=== PATIENT | female | born 1945 | race Caucasian/White ===

== ENCOUNTER → 2017-10-28 | Outpatient (CLI) | payer MEDICARE, OTHER ==
[~2017-10-28] MED LIST: AMITRIPTYLINE H50 M3 PO; ASPIRIN EC81 M1 PO; AZITHROMYCIN 2250 MG PO; B COMPLEX-VITA1 EACH PO; B Complex-Vitamin PO; BUSPAR15 MG PO; BUTALB-APAP-CA1 EACH PO; CALCIUM 600 +1 EAC1 PO; CLEOCIN HCL150 MG PO; FENOFIBRATE160 MG PO; FERREX 150 PLU1 EAC1 PO; FIORICET 50-321 EACH PO; FISH OIL 1,0001 EAC5 PO; FLEXERIL PO; HYDROCODON-ACE1 EAC5 PO; HYDROCODON-ACE1 EAC7 PO; HYDROCODONE-AP1 EAC6 PO; IBUPROFEN 800800 M1 PO; KEFLEX500 MG PO; KLOR-CON 1010 MEQ PO; LASIX 20 MG TAB20 MG PO; NEURONTIN 300300 M1 PO; NORCO 5-325 TA1 EACH PO; OMEGA-3 KRILL1 EACH PO; OMEPRAZOLE40 MG PO; OXYCODON-ACETA1 EAC1 PO; PROCTOFOAM-HC 110 GM RECTAL; PROTONIX40 M2 PO; REQUIP3 MG PO; SIMVASTATIN40 MG PO; SLOW FE 160MG160 MG PO
== END ==
LOC: M.NUC 10-27 12:00
DX: R63.0 Anorexia (principal); R68.81 Early satiety; R63.4 Abnormal weight loss; R11.0 Nausea; R25.2 Cramp and spasm; J44.1 Chronic obstructive pulmonary disease with (acute) exacerbation

== ENCOUNTER 2019-09-11 20:58 | Inpatient (IN) | payer MEDICARE, OTHER ==
[~2019-09-11] VITALS: Ht 157.5 cm; Wt 39.9 kg
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
[2019-09-11 21:06] VITALS: BP 154/73
[2019-09-11 21:34] LABS: ABSOLUTE BASOPHILS 0.1 thou/uL (0.0-0.2); ABSOLUTE EOSINOPHILS 0.4 thou/uL (0.0-0.7); ABSOLUTE LYMPHOCYTES 1.9 thou/uL (0.8-5.3); ABSOLUTE MONOCYTES 0.5 thou/uL (0.0-1.2); ABSOLUTE NEUTROPHILS 5.9 thou/uL (1.6-8.1); BASOPHILS 1.2 %; EOSINOPHILS 4.9 %; HEMATOCRIT 38.2 % (37.0-47.0); HEMOGLOBIN 12.1 gm/dL (12.0-15.0); MCH 28.8 pg (26.0-34.0); MCHC 31.8 g/dL (28.0-37.0); MCV 90.4 fL (80.0-100.0); MONOCYTES 5.9 %; MPV 7.2 fl. (7.2-11.1); NUCLEATED RBCS 0 /100WBC; PLATELET COUNT* 397 thou/uL (150-400); RBC 4.22 mil/uL (4.20-5.00); WBC 8.9 thou/uL (4.0-11.0)
[2019-09-11 21:45] LABS: CALCIUM 8.8 mg/dL (8.5-10.1); CREATININE 0.9 mg/dL (0.6-1.3); POTASSIUM 4.1 mmol/L (3.5-5.1)
[2019-09-11 21:50] LABS: ALBUMIN 3.7 g/dL (3.4-5.0); TOTAL BILIRUBIN 0.1 mg/dL (<0.1-1.0); TOTAL PROTEIN 7.2 g/dL (6.4-8.2)
[2019-09-12 00:05] VITALS: BP 148/80
[2019-09-12 00:15] VITALS: BP 155/67
--- NOTE | 2019-09-12 01:57 | NUR ---
PT ADMITTED TO ROOM 314 AT 0015. PT REPORTED SEVERE ABDOMINAL PAIN AT 0100. PAGED AND RECIEVED ORDER FOR FENTANYL Q 1 HR PRN. PT GIVEN 50 MCG FENTANYL WITH 4 MG ZOFRAN. PT GIVEN FLEETS ENEMA PER ORDERS. PT ASSISTED TO BEDSIDE COMMODE WITH STANDBY ASSISTANCE. CALL LIGHT IN REACH. PT USING APPROPRIATELY.
--- NOTE | 2019-09-12 02:37 | NUR ---
PT UP TO BEDSIDE COMMODE. PT HAD THREE MODERATE SIZED FORMED LIGHT BROWN STOOL.
[2019-09-12 08:36] VITALS: BP 107/52
--- NOTE | 2019-09-12 15:23 | NUR ---
pt has had large light brown bm appearing gritty since given dulcalox supp,miralax and drank 1/4 of mag citrate.prn for pain and nausea given with good effect.iv fluids infusing and pt eating jello now.pt remains alert and orientated.pt also voiding large amounts but unable to obtain urine specimen due to liquid bm's in urine.pt transferrs with min assist.
[2019-09-12 16:00] VITALS: BP 151/63
--- NOTE | 2019-09-12 17:05 | NUR ---
SW met with pt to complete initial assessment, introduce self, and SW role. Pt alert, oriented. Pt lives at home with . Pt does not anticipate any dc needs at this time. SW to remain available to assist with safe dc planning.
[2019-09-12 20:00] VITALS: BP 158/52
[2019-09-12] MEDS ORDERED: MIRTAZAPINE7.5 MG PO (20:12)
[2019-09-12] MEDS ORDERED: DRIZALMA SPRINK60 MG PO (20:14)
[2019-09-13 08:07] VITALS: BP 126/56
[2019-09-13 15:54] VITALS: BP 140/62
--- NOTE | 2019-09-13 16:50 | EKG ---
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
--- NOTE | 2019-09-13 19:03 | NUR ---
PATIENT AMBULATING WITH STAND BY ASSISTANCE IN ROOM THROUGHOUT SHIFT. ALL SAFETY MEASURES MAINTAINED. PATIENT DENIES FURTHER NEEDS AT THIS TIME.
[2019-09-13 20:30] VITALS: BP 138/66
[2019-09-14 04:54] LABS: HEMATOCRIT 28.2 % (37.0-47.0); MCHC 32.1 g/dL (28.0-37.0); MCV 90.2 fL (80.0-100.0); MPV 7.2 fl. (7.2-11.1); RBC 3.13 mil/uL (4.20-5.00); RDW-CV 15.7 % (10.5-14.5); WBC 7.1 thou/uL (4.0-11.0)
[2019-09-14 04:55] LABS: ALBUMIN 2.3 g/dL (3.4-5.0); CALCIUM 7.8 mg/dL (8.5-10.1); CREATININE 0.6 mg/dL (0.6-1.3); MAGNESIUM 1.9 mg/dL (1.8-2.4); POTASSIUM 4.4 mmol/L (3.5-5.1); TOTAL BILIRUBIN 0.1 mg/dL (<0.1-1.0); TOTAL PROTEIN 4.8 g/dL (6.4-8.2)
[2019-09-14 04:58] LABS: HEMOGLOBIN 9.1 gm/dL (12.0-15.0)
--- NOTE | 2019-09-14 06:21 | NUR ---
PT HAD LARGE FORMED BROWN STOOL AT 0615.
[2019-09-14 07:45] VITALS: BP 132/56
[2019-09-14 11:41] VITALS: BP 138/66
[2019-09-14 14:50] VITALS: BP 144/61
[2019-09-14 16:00] VITALS: BP 125/83
--- NOTE | 2019-09-14 16:27 | NUR ---
PATIENT RETURNED FROM FLEX. SIG. ALERT AND ORIENTED X4. WAS GIVEN PAIN MEDICATION FOR HEADACHE AND PATIENT STATED IT IS HELPING. ASSESSMENT CHARTED. WILL CONTINUE TO MONITOR. CALL LIGHT WITHIN REACH.
--- NOTE | 2019-09-14 16:29 | NUR ---
ALERT AND ORIENTED X4. SOAP SUDS ENEMA GIVEN WITH SMALL AMOUNT OF LIQUID STOOL. HAD FLEX SIG DONE TODAY WITH NEW MEDICATIONS ORDERED. UP WITH 1 ASSIST DUE TO UNSTEADY GAIT. NEW IV STARTED WITHOUT DIFFICULTY. CALL LIGHT WITHIN REACH. BED ALARM ON.
[2019-09-14 20:00] VITALS: BP 135/63
[2019-09-15] MEDS ORDERED: OMEPRAZOLE40 MG PO (00:56)
[2019-09-15] MEDS ORDERED: NEURONTIN 400M400 M2 PO (01:04)
[2019-09-15] MEDS ORDERED: NORVASC 2.5 MG2.5 M1 PO (01:05)
[2019-09-15] MEDS ORDERED: TOPAMAX100 MG PO (01:06)
[2019-09-15] MEDS ORDERED: ROPINIROLE HCL4 MG PO (01:09)
[2019-09-15] MEDS ORDERED: ARIMIDEX PO (05:53)
--- NOTE | 2019-09-15 07:48 | NUR ---
Alert and oriented x 4. She is up with asssit to bedside commode. Vitals are stable. She had a migraine and fioricet was given. L arm has still been puffy from previous IV infiltrating. Home med list up dated per patient. New nitro cream applied to rectum. She has slept well.
[2019-09-15 08:32] VITALS: BP 130/58
[2019-09-15 09:06] LABS: URINE BILIRUBIN NEGATIVE (Negative); URINE BLOOD NEGATIVE (Negative); URINE CLARITY CLEAR; URINE COLOR YELLOW; URINE GLUCOSE-RANDOM NEGATIVE (Negative); URINE KETONES NEGATIVE (Negative); URINE LEUKOCYTES-REFLEX NEGATIVE (Negative); URINE NITRITE-REFLEX NEGATIVE (Negative); URINE PROTEIN NEGATIVE (Negative); URINE SPECIFIC GRAVITY <= 1.005 (1.005-1.030); URINE UROBILINOGEN 0.2 E.U./dl (0.2-1.0)
[2019-09-15] MEDS ORDERED: ANUSOL-HC25 MG RECTAL (12:01)
[2019-09-15] MEDS ORDERED: AZITHROMYCIN 2250 MG PO (12:05)
[2019-09-15] MEDS ORDERED: MIRTAZAPINE7.5 MG PO (12:10)
[2019-09-15] MEDS ORDERED: [UNRECOGNIZED DRUG - OTHER] TOP (13:07)
[2019-09-15] MEDS ORDERED: DESITIN TOP (13:07)
[2019-09-15 13:22] VITALS: BP 130/58
--- NOTE | 2019-09-15 14:53 | NUR ---
ASSUMMED CARE OF PT AT 0730, PT ALERT AND ORIENTED, HAS SOME PAIN IN RECTAL AREA WHEN SITTING, DENIES NEED FOR PAIN MEDICATION OTHER THAN SCHEDULED TOPICAL MEDICATION, PT TAKING FOOD AND FLUIDS WELL, UP TO COMMODE, VOIDS IN LARGE AMOUNTS, SMALL AMOUNT OF BM THIS AM, IV INFILTRATED RIGHT FA, DC'D WITH NEEDLE INTACT, PT COMPLAINED OF MIGRAINE, MEDICATED X 2 WITH FIORICET, OBTAINED ADEQUATE RELIEF AND STATED SHE IS ABLE TO REST, DID C/O SLIGHT NAUSEA MEDICATED X1, NO EMESIS, ORDERS OBTAINED FOR DISCHARGE, EDUCATED ON DISCHARGE MEDICATIONS, SCRIPTS, FOLLOW UP APPTS, WHEN TO CALL PHYSICIAN, DIET ACTIVITY, PT COMMUNICATES UNDERSTANDING OF ORDERS, SCRIPTS GIVEN TO PT, AND PT INSTRUCTED SHE MAY NEED TO CALL HER PHARMACY AND ASK IF THEY ARE ABLE TO MAKE THE COMPOUND TOPICAL OINTMENT FOR HER, SHE STATED SHE WOULD FIND A PHARMACY THAT WOULD BE ABLE TO FILL IT, ESCORTED TO MAIN ENTRANCE PER W/C WITH BELONGINGS.
--- NOTE | 2019-09-19 12:06 | PATH ---
[address] [address] PATHOLOGY RPT PROCEDURE Name: ALISA LUGO Room: [address] IN M.R.#: [id number] Admission: 09/11/19 Date of : 47 Discharge: 09/15/19 Report #: [id number] Path Case #: [id number] [facility] Accession Number: [id number] . 01 Material submitted: . rectum - BIOPSIES OF RECTUM FOR PROCTITIS . 01 Clinical history: . None provided . 02 Diagnosis: Colon, rectum, biopsy: - Findings suggestive of ischemic colitis. . (Please see comment) (JARRELL:ramiro; 09/19/2019) [facility] 09/19/2019 0811 Local . 02 Comment: This case has also been reviewed by Dr. Parker Rodriguez MD, who agrees with the diagnosis. (JARRELL:ramiro; 09/19/2019) . 02 Electronically signed: . Abraham Marrero MD, Pathologist NPI- [id number] . 01 Gross description: . Received in formalin labeled "Alisa Lugo, biopsies of rectum for proctitis," are 2 segments of raygoza soft tissue measuring 0.7 x 0.2 x 0.2 cm in aggregate dimensions and ranging from 0.3 to 0.4 cm in maximum dimension. The specimen is submitted entirely in cassette A1. (TSD; 09/14/2019) TOB/TOB 09/14/2019 [facility] Local . 02 Pathologist provided ICD-10: K59.00 . 02 CPT . 504819 Specimen Comment: A courtesy copy of this report has been sent to [phone] Specimen Comment: [phone], Specimen Comment: Report sent to , DR WEST / DR COY Performed at: [address], [place] [id number] MD Orlin Gunderson MD Phone: [phone] [place] [address] PATHOLOGY RPT PROCEDURE Name: ALISA LUGO Room: [address] IN M.R.#: [id number] Admission: 09/11/19 Date of : 47 Discharge: 09/15/19 Report #: [id number] Path Case #: [id number] Performed at: [address] [id number] MD Vineet Moore MD Phone: [phone]
== END 2019-09-15 14:50 | disposition home or self-care (01) | DRG 388 ==
LOC: M.ERS 20:58 → M.3W 23:18 → M.TBA-ER 23:18 → M.3W 09-12 00:05
PROVIDERS: Emergency Medicine; Internal Medicine; ADMIT Family Medicine
PROC: 0DBP8ZX Excision of Rectum, Via Natural or Artificial Opening Endoscopic, Diagnostic (ICD-10-PCS; principal; 2019-09-14)
DX: K56.0 Paralytic ileus (principal); E43 Unspecified severe protein-calorie malnutrition; Z68.1 Body mass index [BMI] 19.9 or less, adult; G43.909 Migraine, unspecified, not intractable, without status migrainosus; E78.5 Hyperlipidemia, unspecified; K57.30 Diverticulosis of large intestine without perforation or abscess without bleeding; K59.00 Constipation, unspecified; K21.9 Gastro-esophageal reflux disease without esophagitis; K62.3 Rectal prolapse; K60.2 Anal fissure, unspecified; K64.8 Other hemorrhoids; R15.9 Full incontinence of feces; Z86.73 Personal history of transient ischemic attack (TIA), and cerebral infarction without residual deficits; Z88.6 Allergy status to analgesic agent; Z88.2 Allergy status to sulfonamides; Z88.8 Allergy status to other drugs, medicaments and biological substances; Z87.891 Personal history of nicotine dependence

== ENCOUNTER → 2019-11-23 | Outpatient (CLI) | payer MEDICARE, OTHER ==
[~2019-11-23] MED LIST changes: +ANUSOL-HC25 MG RECTAL; +ARIMIDEX PO; +DESITIN TOP; +DRIZALMA SPRINK60 MG PO; +MIRTAZAPINE7.5 MG PO; +NEURONTIN 400M400 M2 PO; +NORVASC 2.5 MG2.5 M1 PO; +ROPINIROLE HCL4 MG PO; +TOPAMAX100 MG PO; +[UNRECOGNIZED DRUG - OTHER] TOP
== END ==
LOC: M.LAB 04:06
DX: E87.6 Hypokalemia (principal)

== ENCOUNTER 2020-01-25 15:41 | Emergency (ER) | payer MEDICARE, OTHER ==
[~2020-01-25] VITALS: Ht 157.5 cm; Wt 38.1 kg
[2020-01-25] MEDS ORDERED: LINZESS290 MCG PO (15:57)
[2020-01-25 16:29] LABS: BE -5.3 mmol/L (-2 to +3); PCO2 33.7 mmHg (35.0-45.0); PO2 104.1 mmHg (75.0-100.0); pH 7.375 (7.340-7.450)
[2020-01-25 16:53] LABS: ABSOLUTE BASOPHILS 0.1 thou/uL (0.0-0.2); ABSOLUTE EOSINOPHILS 0.3 thou/uL (0.0-0.7); ABSOLUTE LYMPHOCYTES 1.4 thou/uL (0.8-5.3); ABSOLUTE MONOCYTES 0.4 thou/uL (0.0-1.2); ABSOLUTE NEUTROPHILS 3.5 thou/uL (1.6-8.1); BASOPHILS 1.4 %; EOSINOPHILS 4.8 %; HEMATOCRIT 27.3 % (37.0-47.0); HEMOGLOBIN 8.7 gm/dL (12.0-15.0); LYMPHOCYTES 25.6 %; MCH 24.2 pg (26.0-34.0); MCHC 31.9 g/dL (28.0-37.0); MCV 75.8 fL (80.0-100.0); MONOCYTES 6.5 %; MPV 7.8 fl. (7.2-11.1); NUCLEATED RBCS 0 /100WBC; PLATELET COUNT* 295 thou/uL (150-400); POLYS 61.7 %; RBC 3.61 mil/uL (4.20-5.00); RDW-CV 17.7 % (10.5-14.5); WBC 5.6 thou/uL (4.0-11.0)
[2020-01-25 17:02] LABS: PROTIME 10.4 Seconds (9.20-11.50)
[2020-01-25 17:04] LABS: URINE BILIRUBIN NEGATIVE (Negative); URINE BLOOD NEGATIVE (Negative); URINE CLARITY CLEAR; URINE COLOR YELLOW; URINE GLUCOSE-RANDOM NEGATIVE (Negative); URINE KETONES NEGATIVE (Negative); URINE LEUKOCYTES-REFLEX 1+ (Negative); URINE NITRITE-REFLEX NEGATIVE (Negative); URINE PROTEIN NEGATIVE (Negative); URINE SPECIFIC GRAVITY 1.015 (1.005-1.030); URINE UROBILINOGEN 0.2 E.U./dl (0.2-1.0)
[2020-01-25 17:18] LABS: HYALINE CASTS 4-10 Moderate /LPF (None Seen); MUCUS None Seen strn/LPF (None Seen); SQUAMOUS >10 Many /LPF (0-3)
[2020-01-25 17:19] LABS: BACTERIA-REFLEX >30 Many /HPF (None Seen); CRYSTALS None Seen /LPF (None Seen); URINE RBC None Seen /HPF (0-2); URINE WBC-REFLEX >25 Many /HPF (0-5); WBC CLUMPS Few (None Seen)
[2020-01-25 17:24] LABS: CALCIUM 8.6 mg/dL (8.5-10.1); CREATININE 0.9 mg/dL (0.6-1.3); POTASSIUM 3.7 mmol/L (3.5-5.1)
[2020-01-25 17:34] LABS: ALBUMIN 3.9 g/dL (3.4-5.0); MAGNESIUM 2.2 mg/dL (1.8-2.4); TOTAL BILIRUBIN 0.2 mg/dL (<0.1-1.0)
[2020-01-25 18:50] VITALS: BP 116/75
--- NOTE | 2020-01-26 09:52 | EKG ---
[place] [address] ELECTROCARDIOGRAM REPORT Name: PRISCA SALCIDO Room: [facility]#: [id number] Admission: 01/25/20 Attend Phys: Discharge: 01/25/20 Date of : 47 Date of Service: 01/25/20 1601 Report #: [id number] THIS REPORT FOR: //name// 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 : 1945 Requested By: Laurie Matthews Order Number: [id number] MD: Peewee Stallings Measurements Intervals [place] Rate: 75 P: 56 OR: 162 QRS: 28 QRSD: 89 T: 63 QT: 399 QTc: 446 Interpretive Statements Sinus rhythm nonspecific st changes Probable left atrial enlargement Compared to ECG 09/13/2019 15:40:36 st changes noted Electronically Signed On 01-26-2020 9:51:13 CDT by Peewee Stallings [email or web address] <ELECTRONICALLY SIGNED> By: Peewee Stallings MD, [facility] 01/26/20 0951 1601 1601 Peewee Stallings MD, [facility] /EPI
== END 2020-01-25 18:51 | disposition home or self-care (01) ==
LOC: M.ERS 15:41
PROVIDERS: Personal Emergency Response Attendant
DX: D64.9 Anemia, unspecified (principal); R06.02 Shortness of breath; G43.909 Migraine, unspecified, not intractable, without status migrainosus; Z88.2 Allergy status to sulfonamides; Z88.5 Allergy status to narcotic agent; Z88.8 Allergy status to other drugs, medicaments and biological substances; Z87.891 Personal history of nicotine dependence

== ENCOUNTER 2021-02-13 14:58 | Emergency (ER) | payer MEDICARE, OTHER ==
[~2021-02-13] VITALS: Ht 157.5 cm; Wt 43.1 kg
[~2021-02-13 14:58] MED LIST changes: +LINZESS290 MCG PO
[2021-02-13 16:44] LABS: ABSOLUTE BASOPHILS 0.1 thou/uL (0.0-0.2); ABSOLUTE EOSINOPHILS 0.2 thou/uL (0.0-0.7); ABSOLUTE MONOCYTES 0.2 thou/uL (0.0-1.2); WBC 5.5 thou/uL (4.0-11.0)
[2021-02-13 16:46] LABS: ABSOLUTE NEUTROPHILS 3.5 thou/uL (1.6-8.1); HEMOGLOBIN 12.3 gm/dL (12.0-15.0); POLYS 64.5 %
[2021-02-13 16:49] LABS: ABSOLUTE LYMPHOCYTES 1.5 thou/uL (0.8-5.3); EOSINOPHILS 3.9 %; HEMATOCRIT 37.1 % (37.0-47.0); LYMPHOCYTES 26.4 %; MCH 32.5 pg (26.0-34.0); MCV 98.4 fL (80.0-100.0); MONOCYTES 4.2 %; MPV 8.2 fl. (7.2-11.1); NUCLEATED RBCS 0 /100WBC; PLATELET COUNT* 216 thou/uL (150-400); RBC 3.77 mil/uL (4.20-5.00); RDW-CV 13.4 % (10.5-14.5)
[2021-02-13 16:50] LABS: CALCIUM 8.4 mg/dL (8.5-10.1); CREATININE 0.8 mg/dL (0.6-1.3)
[2021-02-13 16:55] LABS: ALBUMIN 3.7 g/dL (3.4-5.0); TOTAL BILIRUBIN 0.2 mg/dL (<0.1-1.0); TOTAL PROTEIN 7.3 g/dL (6.4-8.2)
[2021-02-13 17:13] LABS: URINE BILIRUBIN NEGATIVE (Negative); URINE BLOOD NEGATIVE (Negative); URINE CLARITY CLEAR; URINE COLOR YELLOW; URINE GLUCOSE-RANDOM NEGATIVE (Negative); URINE KETONES NEGATIVE (Negative); URINE LEUKOCYTES-REFLEX NEGATIVE (Negative); URINE NITRITE-REFLEX NEGATIVE (Negative); URINE PROTEIN NEGATIVE (Negative); URINE SPECIFIC GRAVITY 1.015 (1.005-1.030); URINE UROBILINOGEN 0.2 E.U./dl (0.2-1.0)
[2021-02-13] MEDS ORDERED: TRANSDERM-SCOP1 EACH TRANSDERM ×2 (18:01→18:04)
[2021-02-13] MEDS ORDERED: CEPHALEXIN500 MG PO ×2 (18:01→18:04)
[2021-02-13 18:22] VITALS: BP 146/36
--- NOTE | 2021-02-14 11:14 | EKG ---
[place] [address] ELECTROCARDIOGRAM REPORT Name: PRISCA SALCIDO Room[facility]#: [id number] Admission: 02/13/21 Attend Phys: Discharge: 02/13/21 Date of : 47 Date of Service: 02/13/21 1643 Report #: [id number] THIS REPORT FOR: //name// ED Test Date: 2021-02-13 Test Time: 16:43:42 Pat Name: PRISCA SALCIDO Department: Room: Gender: [employer] Manager: [facility] : 1945 Requested By: Jonathon Camarena Order Number: [id number] MD: Peewee Stallings Measurements Intervals [place] Rate: 65 P: 54 [place]: 179 QRS: 16 QRSD: 93 T: 53 QT: 413 QTc: 430 Interpretive Statements Sinus rhythm Compared to ECG 01/25/2020 16:01:05 ST (T wave) deviation no longer present Electronically Signed On 02-14-2021 11:14:36 CDT by Peewee Stallings [email or web address] <ELECTRONICALLY SIGNED> By: Peewee Stallings MD, [facility] 02/14/21 1114 1643 1643 Peewee Stallings MD, [facility] /EPI
== END 2021-02-13 18:23 | disposition home or self-care (01) ==
LOC: M.ERS 14:58
PROVIDERS: Physician Assistant
DX: S01.81XA Laceration without foreign body of other part of head, initial encounter (principal); R42 Dizziness and giddiness; G43.909 Migraine, unspecified, not intractable, without status migrainosus; E78.5 Hyperlipidemia, unspecified; Z86.73 Personal history of transient ischemic attack (TIA), and cerebral infarction without residual deficits; Z79.899 Other long term (current) drug therapy; Z88.5 Allergy status to narcotic agent; Z88.2 Allergy status to sulfonamides; Z88.8 Allergy status to other drugs, medicaments and biological substances; Z87.891 Personal history of nicotine dependence; W18.39XA Other fall on same level, initial encounter; Y93.89 Activity, other specified; Y92.098 Other place in other non-institutional residence as the place of occurrence of the external cause; Y99.8 Other external cause status

== ENCOUNTER 2021-05-01 18:48 | Emergency (ER) | payer MEDICARE, OTHER ==
[~2021-05-01] VITALS: Ht 157.5 cm; Wt 38.1 kg
[~2021-05-01 18:48] MED LIST changes: +CEPHALEXIN500 MG PO; +TRANSDERM-SCOP1 EACH TRANSDERM
[2021-05-01 20:01] LABS: CALCIUM 8.6 mg/dL (8.5-10.1); CREATININE 0.7 mg/dL (0.6-1.3); POTASSIUM 4.5 mmol/L (3.5-5.1)
[2021-05-01 20:05] LABS: ALBUMIN 3.8 g/dL (3.4-5.0); TOTAL BILIRUBIN 0.3 mg/dL (<0.1-1.0); TOTAL PROTEIN 7.5 g/dL (6.4-8.2)
[2021-05-01 20:26] LABS: URINE BILIRUBIN NEGATIVE (Negative); URINE BLOOD NEGATIVE (Negative); URINE CLARITY CLEAR; URINE COLOR YELLOW; URINE GLUCOSE-RANDOM NEGATIVE (Negative); URINE KETONES NEGATIVE (Negative); URINE LEUKOCYTES-REFLEX NEGATIVE (Negative); URINE NITRITE-REFLEX NEGATIVE (Negative); URINE PROTEIN NEGATIVE (Negative); URINE UROBILINOGEN 0.2 E.U./dl (0.2-1.0)
[2021-05-01 20:33] LABS: ABSOLUTE EOSINOPHILS 0.2 thou/uL (0.0-0.7); ABSOLUTE LYMPHOCYTES 1.3 thou/uL (0.8-5.3); ABSOLUTE MONOCYTES 0.4 thou/uL (0.0-1.2); ABSOLUTE NEUTROPHILS 3.2 thou/uL (1.6-8.1); BASOPHILS 0.9 %; EOSINOPHILS 3.9 %; HEMATOCRIT 34.4 % (37.0-47.0); HEMOGLOBIN 11.7 gm/dL (12.0-15.0); LYMPHOCYTES 25.1 %; MCH 33.2 pg (26.0-34.0); MCHC 34.1 g/dL (28.0-37.0); MCV 97.5 fL (80.0-100.0); MONOCYTES 7.4 %; MPV 7.2 fl. (7.2-11.1); NUCLEATED RBCS 0 /100WBC; PLATELET COUNT* 244 thou/uL (150-400); POLYS 62.7 %; RBC 3.53 mil/uL (4.20-5.00); RDW-CV 14.9 % (10.5-14.5); WBC 5.1 thou/uL (4.0-11.0)
[2021-05-01] MEDS ORDERED: NORCO5 PO ×2 (21:09→21:29)
[2021-05-01 22:19] VITALS: BP 128/57
--- NOTE | 2021-05-02 10:26 | EKG ---
[place] [address] ELECTROCARDIOGRAM REPORT Name: PRISCA SALCIDO Room: [facility]#: [id number] Admission: 05/01/21 Attend Phys: Discharge: 05/01/21 Date of : 47 Date of Service: 05/01/211958 Report #: [id number] THIS REPORT FOR: //name// [facility] ED Test Date: 2021-05-01 Test Time: 19:59:13 Pat Name: PRISCA SALCIDO Department: Room: Gender: J2Ee Programmer: [place] : 1945 Requested By: Jonathon Camarena Order Number: [id number] MD: Peewee Satllings Measurements Intervals [place] Rate: 84 P: 75 [place]: 162 QRS: 55 QRSD: 87 T: 64 QT: 381 QTc: 451 Interpretive Statements Sinus rhythm Left atrial enlargement Compared to ECG 02/13/2021 16:43:42 no change Electronically Signed On 05-02-2021 10:26:14 CDT by Peewee Stallings [email or web address] <ELECTRONICALLY SIGNED> By: Peewee Stallings MD, [facility] 05/02/21 1026 58 58 Peewee Stallings MD, [facility] /EPI
== END 2021-05-01 22:21 | disposition home or self-care (01) ==
LOC: M.ERS 18:48
PROVIDERS: Physician Assistant
DX: S02.611A Fracture of condylar process of right mandible, initial encounter for closed fracture (principal); R55 Syncope and collapse; G43.909 Migraine, unspecified, not intractable, without status migrainosus; E78.5 Hyperlipidemia, unspecified; Z87.891 Personal history of nicotine dependence; Z88.5 Allergy status to narcotic agent; Z88.2 Allergy status to sulfonamides; Z88.1 Allergy status to other antibiotic agents; Z79.899 Other long term (current) drug therapy; Z86.73 Personal history of transient ischemic attack (TIA), and cerebral infarction without residual deficits; Z98.890 Other specified postprocedural states; W18.30XA Fall on same level, unspecified, initial encounter; Y93.89 Activity, other specified; Y92.89 Other specified places as the place of occurrence of the external cause; Y99.9 Unspecified external cause status